=== PATIENT | female | born 1980 | race Caucasian/White ===

== ENCOUNTER 2018-07-11 23:15 | Emergency (ER) | payer OTHER ==
--- NOTE | 2018-07-11 23:19 | PDOC ---
History of Present Illness - General Chief Complaint: Abscess Boil Stated Complaint: ABSCESS/BOIL Time Seen by Provider: 07/11/18 23:18 - History of Present Illness Initial Comments: 07/11/18 23:43 37 years old no significant past medical history presents to the emergency department with 2 small questionable boils Patient states she had one approximately at her belt line in May had not noticed it for a while but tonight noticed it appeared larger more swollen by touch She also had a small pimple under her right breast and became concerned because of the presence of 2 of them No fever no chills she is currently on her menstrual. Symptoms are mild to moderate persistent concent no clear exacerbating or alleviating factors no history of trauma. Past History - Past Medical History Allergies/Adverse Reactions: Allergies Allergy/AdvReac Type Severity Reaction Status Date / Time No Known Allergies Allergy Unverified 07/11/18 23:16 Home Medications: Ambulatory Orders Cephalexin Monohydrate [Keflex -] 500 mg PO Q8H #15 capsule 07/11/18 Review of Systems - Review of Systems Comments:: 07/11/18 23:45 ROS: A complete review of 10 out of 10 review of systems is taken and is negative apart from what is previously mentioned below and in the HPI. *Physical Exam - Physical Exam Comments: 07/11/18 23:46 Vitals: Triage Vital signs reviewed General Appearance: no acute distress, well nourished well developed, Head: Atraumatic, Abdomen: Soft, non distended, normal bowel sounds, non tender to palpation Extremities: Full range of motion to all extremities, no cyanosis, clubbing, or edema Skin: Warm and dry, 0.5 cm x 0.5 cm blood blister with surrounding area of slight irritation redness approximately 2 cm x 2 cm not cellulitic not warmth blanching. Under right breast small 0.5 cm area of redness no fluctuance nonamenable to drainage. Small pustule. Psych: normal mood, normal affect Medical Decision Making - Medical Decision Making 07/11/18 23:47 1 small blood blister suprapubic area lanced with removal blood no pus Small pustule on the right breast no fluctuance no indication for drainage at this time Neither area appears infected we'll recommend warm compresses bacitracin conservative management. If any redness progresses a prescription for Keflex has been called into the patient's pharmacy she was instructed to return to the emergency department for any progressively worsening symptoms or for any concerns. Find his, need for follow-up and strict return instructions discussed patient. *DC/Admit/Observation/Transfer Diagnosis at time of Disposition: Blister, Pustule - Discharge Dispostion Disposition: HOME Condition at time of disposition: Stable Decision to Admit order: No - Referrals Referrals: Tawanda Dias [Primary Care Provider] - - Patient Instructions Printed Discharge Instructions: Boil Additional Instructions: Apply warm compresses troponins on 20 minutes off to both areas. Apply bacitracin twice a day for the next 5 days. Keflex as prescribed if you notice signs of infection worsening redness warmth or for any concerns. Return to the ED if the pustule becomes amenable to drainage or for any concerns. - Post Discharge Activity
[2018-07-11 23:27] VITALS: BP 137/76; PULSE 84; TEMP 97.6; BMI 49.1
== END 2018-07-11 23:52 | disposition home or self-care (01) ==
LOC: FER 23:15
PROC: 0H97XZZ Drainage of Abdomen Skin, External Approach (ICD-10-PCS; principal; 2018-07-11)
DX: L08.9 Local infection of the skin and subcutaneous tissue, unspecified (principal)
CPT/HCPCS: 99281-25